=== PATIENT | male | born 1950 | race Caucasian/White ===

== ENCOUNTER → 2016-07-10 | Day surgery (SDC) | payer MEDICARE, BC ==
[~2016-07-10] MED LIST: Atracurium* 10 MG/ML 10 ML VIAL ONE; Buffered Lidocaine 1% SYR 3ML* 3 ML/SYR SYRINGE INTRADERM ONE; Buffered Lidocaine 1% SYR 3ML* 3 ML/SYR SYRINGE ONE; Bupivacaine 0.5% W/EPI SDV* 30 ML VIAL ONE; Clindamycin 900 MG IVPREMIX(* 900 MG/50 ML SDV IV ONE; DiMENhydriNATE IV* 50 MG/ML VIAL IV PUSH PRN; EPINEPHrine AMP 1 MG/ML ONE; HYDROcodone/ACETAMIN 5-325 MG* 1 TAB ONE; HYDROcodone/ACETAMIN 5-325 MG* 1 TAB PO PRN; HYDROmorphone INJ* 1 MG/ML CARPUJECT SYRINGE ONE; Ketorolac INJ* 30 MG/ML 1 ML VIAL IV PUSH PRN; Ketorolac INJ* 30 MG/ML 1 ML VIAL ONE; Lidocaine 2% MPF* 2 ML VIAL ONE; Ondansetron ODT TAB* 4 MG PO PRN; Phenylephrine IV* 40 MCG/ML 10 ML SYRINGE ONE; Propofol* 10 MG/ML 20 ML BTL IV PUSH ONE; fentaNYL* 50 MCG/ML 2 ML VIAL (100 MCG VIAL) ONE; fentaNYL* 50 MCG/ML 5 ML VIAL (250 MCG VIAL) ONE
[2016-07-10] MEDS: HYDROmorphone INJ* 1 MG/ML CARPUJECT SYRINGE IV PRN ×5 (12:52→14:06)
[2016-07-10] MEDS: fentaNYL* 50 MCG/ML 2 ML VIAL (100 MCG VIAL) IV PRN ×2 (12:54→13:07)
[2016-07-10 14:56] VITALS: BP 145/88
--- NOTE | 2016-07-12 03:16 | OP ---
DATE OF OPERATION: 07/10/16 - [facility] DATE OF : 52 SURGEON: Santos Howell MD TRIBAL JUDGE: MINOO Wheeler ANESTHESIOLOGIST: Rober Akhtar MD ANESTHESIA: General anesthesia. ANTIBIOSIS: Clindamycin 900 mg IV. PRE-OP DIAGNOSES: 1. Left shoulder rotator cuff tear, supraspinatus. 2. Left shoulder subacromial impingement. 3. Left shoulder AC joint arthritis. 4. Left shoulder possible proximal biceps tendonitis. 5. Left shoulder possible superior labral tear. POST-OP DIAGNOSES: 1. Left shoulder rotator cuff tear, supraspinatus. 2. Left shoulder subacromial impingement. 3. Left shoulder AC joint arthritis. 4. Left shoulder possible superior labral tear OPERATIVE PROCEDURES: 1. Left shoulder arthroscopic rotator cuff repair, supraspinatus, double row. 2. Left shoulder arthroscopic subacromial decompression. 3. Left shoulder arthroscopic distal clavicle resection. 4. Left shoulder arthroscopic release of biceps and debridement of superior labrum INDICATIONS: The patient is a 66-year-old man, retired, right-hand dominant, who presented to me with 3 months of lateral left shoulder pain. This pain had increased greatly when he threw a piece of wood and felt a sudden sharp stab in his lateral shoulder. This is affecting his sleep greatly. The patient himself was seen by his primary care physician first and diagnosed with bursitis , given a subacromial cortisone injection, and prescribed physical therapy. The patient's symptoms worsened and then he felt a snap in his shoulder with subsequent mild swelling and ecchymosis with actual some improvement of his symptoms. However, his pain continued to affect his activities of daily living and sleep. Of note, the patient has a history of a DVT 4 years prior to surgery treated with Coumadin for a limited time. The patient's preoperative exam demonstrated positive subacromial Neer and Foster impingement signs and pain with supraspinatus stress testing. There was a positive Speeds sign, positive tenderness to palpation at the biceps as well as tenderness to palpation at the AC joint. X-rays demonstrated much AC joint narrowing with the osteophyte off the inferior clavicle. MRI showed AC joint arthritis as well as a small lateral acromial spur impinging on the supraspinatus. There was noted a full width, full thickness around the supraspinatus with some minimal fat in the supraspinatus. There was also demonstrated a likely SLAP tear. The patient opted for surgical management. IV FLUIDS: See Anesthesia note. EBL: Minimal. SPECIMEN: None. IMPLANTS: 1. Mitek double-loaded Healix anchors x2. 2. Mitek knotless suture anchor x1. COMPLICATIONS: None. DESCRIPTION OF PROCEDURE: Preoperative written consent. Operative extremity was marked in preoperative holding. The patient declined an interscalene regional anesthetic block recommended by Anesthesia. The patient was taken back to the operating and placed supine on the operating room table. The patient was sedated and intubated. The patient was turned to the lateral decubitus position with the left shoulder up. All bony prominences were padded. An axillary roll was placed. A luciano bag was inflated. The left upper extremity was placed in 12 pounds of traction with 40 degrees of shoulder abduction and 15 degrees of forward flexion. The left shoulder was prepped and draped. Surgical time-out was performed. The posterior glenohumeral joint entered using a spinal 22 gauge needle. 25 cc of normal saline was infused into the joint. The glenohumeral joint was then entered through a standard posterior portal creation. Diagnostic arthroscopy was commenced. No clear articular cartilage lesions of either the glenoid or the humeral head. No calcification noted inferiorly that had been seen on x-ray. There was an superior labral tear visible. There was a clear large width supraspinatus tear present. The subscapularis looked frayed. An anterior glenohumeral joint portal was established under direct visualization. Some rotator interval tissue was debrided with the arthroscopic shaver. The arthroscopic shaver and the probe were used to evaluate the superior labrum. There was a clear superior labral tear. I probed it with the arthroscopic probe and shaver. The labrum clearly lifted off at least 5mm. There was much fraying in the tear and bare glenoid rim visible. The biceps itself did not show significant fraying. An arthroscopic scissors was introduced from anteriorly and the proximal biceps was cut. The labral tear was then debrided using the arthroscopic shaver. The subscapularis was evaluated again. There was fraying, but no clear bare area of rotator cuff footprint. No clear displaced tear. Instruments and fluid removed from the glenohumeral joint. The subacromial space was entered from posterior to anterior. A lateral subacromial portal was established. We had some technical difficulties at this point. A shaver was introduce,d but was not working. Later shaver was on, but would not turn off. Visibility was an issue as the patient's systolic blood pressure increased and was in the 140s for a period of time. I used a vapor to coagulate any possible bleeders, although it was just loose from everywhere. Eventually, the redness stopped and visibility improved. I visualized a retracted full width supraspinatus rotator cuff tear. The rotator cable was flipped up and back medially. I mobilized the tendon with a switching stick superior and inferior. I debrided the bleeding edge of the retracted cuff with an arthroscopic shaver. Before doing any additional cuff work, I then did my subacromial decompression. Using a priti, debrided proximally 4 mm of the anterior tip as well as lateral tip of the acromion. Nicely flattened out the undersurface of the acromion. Then, using a Scorpion, I placed a traction stitch in the supraspinatus. Using that as well as a cuff grasper, I identified the shape of the tear as crescent and found that it would clearly reduce to bone, specifically the footprint. I prepared the footprint by debriding it with an arthroscopic shaver including on forward mode. I briefly used the priti as well on that bone. I then created some superolateral stab holes and introduced double loaded Healix suture anchors just at the margin of articular cartilage and the medial footprint of the supraspinatus so as to not to put the healed cuff tendon on too much tension. I created additionally posterolateral and anterolateral portals to facilitate passage of the Expresso, specifically the knotless Expresso, and to improve my visualization. I passed the suture from the medial row suture anchors using the Expressew device. One suture in the anterior anchor failed, so I placed one horizontal mattress stitch with the anterior anchor and two nice mattress stitches from the posterior anchor. The anterior anchor stitch was not a sliding knot, but it came down nicely and the cuff nicely apposed the footprint along the length of the tear. To supplement this, I placed a knotless lateral row anchor x1 using suture from the medial row. I placed this through a superolateral portal using standard technique. I moved the humerus, confirmed the stability of the repair and took pictures of it. I then took a little bit of additional subacromial bursa with my shaver and a little bit of additional anterior hook of the acromion with a priti. I then took 8 mm of the bone off the distal end of the clavicle using the arthroscopic priti. All instruments and fluid were removed from the shoulder. The skin incisions were closed with [id number] stitches using nylon 4-0 suture, Xeroform, 4x4s, ABDs , foam tape. The patient was returned in supine position, awakened and extubated and transferred to the PACU. DISPOSITION: Postoperatively, my plan was to give the patient Lovenox for 1 week 40 mg subcu daily and follow that with 3 weeks of aspirin 325 mg p.o. b.i.d. This increased regiment of DVT prophylaxis is due to the patient's history of DVT. The patient has no known genetic predisposition to blood clots. The patient will also receive Keflex for 7 days and Percocet as needed for pain. He is in an UltraSling with a shoulder abduction pillow and will follow up with me in 10 to 14 days postoperatively. [id number]/[facility] #: [id number] MTDD
== END | disposition home or self-care (01) ==
LOC: OR 06:50
PROVIDERS: ATTEND Orthopaedic Surgery
DX: M75.102 Unspecified rotator cuff tear or rupture of left shoulder, not specified as traumatic (principal); M75.42 Impingement syndrome of left shoulder; M19.012 Primary osteoarthritis, left shoulder; M75.22 Bicipital tendinitis, left shoulder
CPT/HCPCS: J0171; J1170; J1885; J2704; J3010

== ENCOUNTER 2017-01-28 11:43 | Emergency (ER) | payer MEDICARE, BC ==
--- NOTE | 2017-01-28 12:53 | ED ---
Lower Extremity - HPI Summary HPI Summary: 66 male presents with complaints of a swollen, painful right lower leg that began ~1 week ago however really worsened over the past 2-3 days. Patient has a history of DVT in the same leg ~3years ago from trauma. Was taking coumadin at that time however is no longer taking any anticoagulants. Denies tobacco use, recent travel or bed rest. No trauma or injury. States it is worse when walking and bearing weight, better with rest. Described as dull ache. No other complaints or symptoms. Denies chest pain, SOB and nausea. Denies rash, redness , bruising and warmth to lower leg. PMHx significant for HTN which he takes lisinopril for. Has not taken any addtionaly medication for the pain besides his daily pain meds for chronic back pain. Denies numbness/tingling. - History of Current Complaint Chief Complaint: EDExtremityLower Stated Complaint: RT LEG SWELLING/POSSIBLE BLOOD CLOT Time Seen by Provider: 01/28/17 11:57 Hx Obtained From: Patient Mechanism Of Injury: Unknown - none Onset of Pain: Days Onset/Duration: Days Severity Initially: Mild Severity Currently: Moderate Pain Intensity: 3 Pain Scale Used: 0-10 Numeric Timing: Constant Location: Is Discrete @ - posterior right lower leg Character Of Pain: Dull, Aching Associated Signs And Symptoms: Positive: Swelling Aggravating Factor(s): Standing, Ambulation, Weight Bearing Alleviating Factor(s): Rest Able to Bear Weight: Yes - Risk Factors DVT Risk Factors: Prior DVT - Allergies/Home Medications Allergies/Adverse Reactions: Allergies Allergy/AdvReac Type Severity Reaction Status Date / Time Penicillins Allergy Severe Rash, HIVES Verified 07/03/16 13:52 Lisinopril Allergy Coughing Verified 07/03/16 13:52 PMH/Surg Hx/FS Hx/Imm Hx Endocrine/Hematology History: Denies: Hx Diabetes Cardiovascular History: Reports: Hx Hypertension - CONTROL WITH MEDS Denies: Hx Pacemaker/ICD History: Denies: Hx Renal Disease Musculoskeletal History: Reports: Hx Arthritis - BACK, Hx Bursitis - LEFT SHOULDER, Hx Tendonitis, Other Musculoskeletal History - TORN ROTATO CUFF Sensory History: Reports: Hx Contacts or Glasses - GLASSES, 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 2011 LIPOMA RIGHT ARM REMOVED, [facility] Hx Anesthesia Reactions: No - Immunization History Immunizations Up to Date: Yes Infectious Disease History: No Infectious Disease History: Denies: Traveled Outside the [place] in Last 30 Days - Family History Known Family History: Positive: None - Social History Alcohol Use: Rare Substance Use Type: Reports: None Smoking Status (MU): Never Smoked Tobacco Review of Systems Constitutional: Negative Cardiovascular: Negative Respiratory: Negative Gastrointestinal: Negative Positive: Myalgia, Edema Skin: Negative Neurological: Negative All Other Systems Reviewed And Are Negative: Yes Physical Exam Triage Information Reviewed: Yes Vital Signs On Initial Exam: Initial Vitals Temp Pulse Resp BP Pulse Ox 97.8 F 80 16 154/94 99 01/28/17 11:47 01/28/17 11:47 01/28/17 11:47 01/28/17 11:47 01/28/17 11:47 Vital Signs Reviewed: Yes Appearance: Positive: Well-Appearing, No Pain Distress, Well-Nourished Skin: Positive: Warm, Skin Color Reflects Adequate Perfusion, Dry. Negative: Numb, Tender, Cyanosis @, Pale, Erythema @ Head/Face: Positive: Normal Head/Face Inspection Eyes: Positive: Normal, Conjunctiva Clear ENT: Positive: Hearing grossly normal Neck: Positive: Supple, Nontender Respiratory/Lung Sounds: Positive: Clear to Auscultation, Breath Sounds Present. Negative: Rales, Rhonchi, Wheezes Cardiovascular: Positive: Normal, RRR, Pulses are Symmetrical in both Upper and Lower Extremities - 2+ pedal equal b/l. Negative: Murmur, Rub Bowel Sounds: Positive: Present Musculoskeletal: Positive: Normal, Strength/ROM Intact, Pain @ - posterior right lower leg behind knee and into calf with palpation, mild, Edema Right - 39.5cm around calf circumference and 35.5cm on left, Other - no obvious signs of trauma. Negative: Lauryn Sign Left, Lauryn Sign Right Neurological: Positive: Normal, Sensory/Motor Intact, Alert, Oriented to Person Place, Time, Reflexes Intact Diagnostics - Vital Signs Vital Signs Temp Pulse Resp BP Pulse Ox 01/28/17 11:47 97.8 F 80 16 154/94 99 - Laboratory Result Diagrams: 01/28/17 14:14 01/28/17 14:14 Lab Statement: Any lab studies that have been ordered have been reviewed, and results considered in the medical decision making process. - Ultrasound No standard instances Ultrasound Interpretation: Positive (See Comments) - There is occlusive thrombus from the level of the right femoral vein inferiorly through to the calf veins. The remainder of the venous system of the right lower extremity is compressible throughout its course, with normal flow on color Doppler imaging and normal response to augmentation on spectral Doppler imaging. Ultrasound Interpretation Completed By: Radiologist Lower Extremity Course/Dx - Course Course Of Treatment: U/S obtained and positive for an occlusive thrombosis in right femoral vein. Due to PE findings, vital signs and HPI no further testing was required. CBC CMP ordered to check kidney function. spoke with patient and educated on treatment for DVT. decided that outpatient xarelto was drug of choice. aware of all side effects, contraindications and risks of anticoagulant medication. aware of worsening signs and symptoms of DVT. close follow up with PCP. understands appropraite treatment regimen, meds to stay away from and things to look out for while taking medication. agrees with plan. given first dose while in ED. patient is responsible and compliant with medications. no concern for outpatient treatment at this time. - Diagnoses Differential Diagnosis/HQI/PQRI: Positive: Contusion, DVT, Gout, Infection, Sprain, Strain Provider Diagnoses: Deep vein thrombosis (DVT) of right lower extremity - Physician Notifications Discussed Care Of Patient With: Dr Fox Discharge - Discharge Plan Condition: Stable Disposition: HOME Prescriptions: Rivaroxaban TAB(*) [Xarelto 15 mg(*)] 15 mg PO BID #42 tab Patient Education Materials: Rivaroxaban (By mouth), Deep Venous Thrombosis (ED ) Referrals: Satish Avelar MD [Primary Care Provider] - Additional Instructions: Take medication as directed, twice daily with food. Do not take medications containing aspirin, ibuprofen or naproxen. No NSAIDs as they can increase your risk of bleeding. Tylenol/acetaminophen is safe. This does thin your blood as we discussed and there is a risk of bleeding. If you have any trauma, cut, bloody nose etc please seek medical attention promptly to ensure bleeding subsides- apply pressure. Length of treatment is approximately 3 months however may be longer depending. Follow up with primary care appointment as you will need a new dose of medication after the first 21 days and follow up on DVT. If you develop worsening signs and symptoms such as difficulty breathing, SOB, chest pain etc please seek medical attention immediately.
--- NOTE | 2017-01-28 13:25 | RAD ---
HISTORY: Right leg pain COMPARISONS: None relevant TECHNIQUE: Multiple transverse and longitudinal ultrasound images were obtained of the right lower extremity from the level of the common femoral vein inferiorly through to the infrapopliteal veins using grayscale, color Doppler, and spectral Doppler imaging with and without compression and with augmentation. Comparison images were obtained of the contralateral common femoral vein. FINDINGS: VEINS: There is occlusive thrombus from the level of the right femoral vein inferiorly through to the calf veins. The remainder of the venous system of the right lower extremity is compressible throughout its course, with normal flow on color Doppler imaging and normal response to augmentation on spectral Doppler imaging. SOFT TISSUES: Unremarkable. OTHER FINDINGS: None. IMPRESSION: OCCLUSIVE THROMBUS OF THE RIGHT FEMORAL VEIN INFERIORLY TO THE CALF VEINS
[2017-01-28 14:25] LABS: Hematocrit 43 % (42-52); Hemoglobin 14.8 g/dl (14.0-18.0); Mean Corpuscular HGB Conc 34 g/dl (31-36); Mean Corpuscular Hemoglobin 31 pg (27-31); Mean Corpuscular Volume 90 fL (80-94); Mean Platelet Volume 9 um3 (7.4-10.4); Red Blood Count 4.83 10^6/ul (4.0-5.4); Red Cell Distribution Width 14 % (10.5-15)
[2017-01-28 14:41] LABS: Albumin 4.1 g/dL (3.2-5.2); BUN/Creatinine Ratio 18.5 (8-20); Calcium 10.4 mg/dL (8.6-10.3); EGFR African American 106.2 (>60); EGFR Non-African American 82.6 (>60); Globulin 3.2 g/dL (2-4); Potassium 4.1 mmol/L (3.5-5.0); Total Bilirubin 0.6 mg/dL (0.2-1.0); Total Protein 7.3 g/dL (6.4-8.9)
[2017-01-28] MEDS ORDERED: Rivaroxaban TAB(*) 15 MG PO ONE (14:56)
[2017-01-28 15:29] VITALS: BP 153/79
== END 2017-01-28 15:28 | disposition home or self-care (01) ==
LOC: ED 11:43
DX: I82.401 Acute embolism and thrombosis of unspecified deep veins of right lower extremity (principal)
CPT/HCPCS: 36415; 80053; 85025; 99282

== ENCOUNTER 2019-07-24 07:19 | Emergency (ER) | payer MEDICARE, BC ==
--- OUTSIDE RECORDS SUMMARY | 2019-07-24 07:25 | XMS REPORT | Continuity of Care Document ---
:1950 External Reference #:[id number] Author Name Isabela Bettencourt M.D. (transmitted by agent of provider Kalia Tanner) Address [address] [place] [address] [place] [address] Care Team Providers Name Role Phone Satish Avelar MD - Internal Care Team Information Quality Control Coordinator Medicine Problems Description No Information Available Social History Type Date Description Comments Sex Unknown ETOH Use Denies alcohol use Tobacco Use Start: Unknown Patient has never smoked Smoking Status Reviewed: 07/10/19 Patient has never smoked Exercise Type/Frequency Exercises regularly Allergies, Adverse Reactions, Alerts Active Allergies Reaction Severity Comments Date Penicillin 06/16/2016 Medications Active Medications SIG Qnty Indications Ordering Provider Date Bupropion HCL ER (SR) 1 by mouth twice Unknown a day 150mg Tablets ER 12HR Losartan Potassium 1 by mouth every Unknown 25mg day Tablets Naproxen 1 tablet with Unknown 500mg Tablets food by mouth twice a day Zolpidem Tartrate 1 tab at bedtime Unknown 5mg as needed for Tablets sleep Atorvastatin Calcium 1 by mouth every Unknown 40mg day Tablets Immunizations Description No Information Available Vital Signs Date Vital Result Comment 07/10/2019 10:03am Height 70 inches 5'10" Weight 198.00 lb Heart Rate 64 /min BP Systolic 134 mmHg BP Diastolic 88 mmHg Respiratory Rate 16 /min Body Temperature 98.3 F BMI (Body Mass Index) 28.4 kg/m2 09/28/2016 8:01am Height 70 inches 5'10" Weight 195.00 lb Heart Rate 72 /min BP Systolic 142 mmHg BP Diastolic 87 mmHg Respiratory Rate 16 /min Body Temperature 98.1 F Pain Level 1 BMI (Body Mass Index) 28.0 kg/m2 Results Description No Information Available Procedures Description No Information Available Medical Devices Description No Information Available Encounters Description No Information Available Assessments Date Code Description Provider 07/10/2019 M67.432 Ganglion, left wrist Isabela Bettencourt M.D. Plan of Treatment 07/10/2019 - Isabela Bettencourt M.D.M67.432 Ganglion, left wristFollow up:Follow up: As needed Functional Status Description No Information Available Mental Status Description No Information Available Referrals Description No Information Available
--- NOTE | 2019-07-24 07:31 | UC ---
Lower Extremity/Ankle HPI - HPI Summary HPI Summary: Patient presents to urgent care for evaluation of pain and swelling in his left lower leg, discomfort progressive since Wednesday. Patient denies any trauma. Denies any recent travel. No recent surgeries. Patient does have neuropathy of his feet bilaterally at baseline. Patient states related to this he has some temperature sensitivity in his feet. 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 First was treated with Coumadin. Second DVT was treated with Xarelto in 2017. Patient is not currently on any anticoagulant. Patient does not smoke. Patient does not take any hormone replacement. Patient has not traveled or been on bed rest or recent surgery. Patient does not know family history of DVT/hypercoag disorder. Patient denies any chest pain or shortness of breath. No abdominal pain. No nausea or vomiting. Patient's medications present in the EMR by triage was reviewed this visit. - History of Current Complaint Stated Complaint: LEFT LEG PAIN Hx Obtained From: Patient Onset/Duration: Gradual Onset Severity Initially: Mild Severity Currently: Mild Pain Scale Used: 0-10 Numeric - Allergies/Home Medications Allergies/Adverse Reactions: Allergies Allergy/AdvReac Type Severity Reaction Status Date / Time lisinopril Allergy Coughing Verified 07/24/19 07:35 Penicillins Allergy rash and Verified 07/24/19 07:35 hives Home Medications: Home Medications Gabapentin [Neurontin] 1 cap PO BEDTIME 07/24/19 [History Confirmed 07/24/19] PMH/Surg Hx/FS Hx/Imm Hx - Additional Past Medical History Additional PMH: RLE DVT x 2 Previously Healthy: Yes Endocrine History: Diabetes - borderline, Dyslipidemia Cardiovascular History: Hypertension - Surgical History Surgical History: Yes Surgery Procedure, Year, and Place: 1991 RIGHT AND LEFT STAPEDECTOMY, [employer]- [facility]. 2001 LEFT HERNIA REPAIR, [employer]. 2003 RIGHT HERNIA REPAIR, [employer]. 2006 BACK SURGERY, [employer]. 2011 LIPOMA RIGHT ARM REMOVED, [facility] [place] - Family History Known Family History: Positive: Non-Contributory - Social History Occupation: Retired Lives: With Family Alcohol Use: Rare Substance Use Type: None Smoking Status (MU): Never Smoked Tobacco Review of Systems All Other Systems Reviewed And Are Negative: Yes Constitutional: Positive: Negative Skin: Positive: Negative Musculoskeletal: Positive: Other: - left LE pain, swelling Physical Exam - Summary Physical Exam Summary: Vital Signs Reviewed: Yes A+Ox3, no distress Eyes: Conjunctiva Clear ENT: Hearing grossly normal neck: supple Respiratory: Positive: No respiratory distress, No accessory muscle use, CTA throughout, no w/r Cardiovascular: skin color reflect adequate perfusion 2+ DP, PT + 1+ edema LLE - pt wearing compression sleeve Musculoskeletal Exam: + SLE + flex/ext knee with discomfort left calf, + left flex/ext ankle + TTP left posterior calf Neurological: Positive: Alert, ambulatory without difficulty Psychological: Positive: Normal Response To examiner Skin: Positive: no rash, no ecchymosis, no erythema, mild edema left calf Triage Information Reviewed: Yes Diagnostics - Radiology No standard instances Radiology Interpretation Completed By: Radiologist - Patient Name: DERIAN AMADOR Medical Record#: [id number] Ordering Physician: Gris Barnes MD Acct.#: [id number] : 1950 Age: 69 Sex: M Location: [facility] Exam Date: 07/24/19 075 ADM Status: REG ER Order Information: VL LOWER EXT VEINS LEFT Accession Number: [id number] CPT: 06106 HISTORY: LLE edema, pain s/o DVT COMPARISONS: None relevant TECHNIQUE: Multiple transverse and longitudinal ultrasound images were obtained of the left lower extremity from the level of the common femoral vein inferiorly through to the infrapopliteal veins using grayscale, color Doppler, and spectral Doppler imaging with and without compression and with augmentation. Comparison images were obtained of the contralateral common femoral vein. FINDINGS: VEINS: There is partially occlusive thrombus noted within the femoral vein, with occlusive thrombus of the popliteal vein extending inferiorly into the calf veins. SOFT TISSUES: Unremarkable. OTHER FINDINGS: None. IMPRESSION: LEFT LOWER EXTREMITY DEEP VEIN THROMBOSIS EXTENDING FROM THE FEMORAL VEIN TO THE CALF. <Electronically signed by Guy Thorpe MD in [place]> 07/24/19842 Dictated By: Guy Thorpe MD Dictated Date/Time: 07/24/19841 Transcribed Date/Time: 07/24/19841 Copy to: CC:Gris Barnes MD; Satish Avelar MD Imaging - [facility] Imaging - [facility] Imaging - [facility] [id number] [place] [address] [place] [id number] ph ([phone]) ph ([phone]) ph ([phone]) This report is only to be considered final once signed by the Provider(s) as displayed in the "<Electronically Signed by >" field (s). Absence of a signature indicates the report is in a draft status and still needs to be finalized. In the event this document was created by someone other than the signing Provider, the individual initiating the document will be listed in the "Entered by:" or "Dictated by:" adame. Re-Evaluation - Re-Evaluation First Eval Comment: Patient does have a left lower extremity DVT. Patient distal CSM is intact. I spoke with Dr. Avelar patient's PCP. Start patient on Xarelto, 15mg twice a day. He will have his staff call patient today to schedule follow-up with him this week. Discussed with Dr. Avelar about having blood work drawn today here for hypercoagulable panel. He indicated to hold today and he will return to his office. I did update patient and he is comfortable with this plan. Patient declined offer for crutch or walker. Strict return precautions discussed with patient. Patient advised not to take NSAIDs or aspirin while on Xarelto States understanding and will use Tylenol for pain. Pt comfortable and in agreement with plan. Lower Extremity Course/Dx - Course Course Of Treatment: Patient presents to urgent care for evaluation of left lower extremity pain. Patient's concerned he's has a DVT. Patient's had progressive pain since Wednesday. Patient to the right leg in the past. Patient is currently not anticoagulated. Patient does not have any identified risk factors including travel, surgery, smoking, family history. Patient does not know if he had a hypercoagulable workup. On exam vital signs are stable. Patient does have some edema in his left lower extremity as well as discomfort along the calf into the popliteal fossa. Patient with good distal CSM. We'll check the ultrasound. Patient also accepting Tylenol for pain. Pt's BP elevated - history of same - Differential Dx/Diagnosis Provider Diagnosis: Deep vein thrombosis (DVT) of left lower extremity Discharge ED - Sign-Out/Discharge Documenting (check all that apply): Patient Departure All imaging exams completed and their final reports reviewed: Yes - Discharge Plan Condition: Stable Disposition: HOME Prescriptions: Rivaroxaban TAB(*) [Xarelto 15 mg(*)] 15 mg PO DAILY #42 tab Patient Education Materials: Deep Vein Thrombosis (ED) Referrals: Satish Avelar MD [Primary Care Provider] - (You should be seen this week - his office will call you to schedule an appointment. ) Additional Instructions: - Take Xarelto 2 times a day as prescribed - Okay to take Tylenol every 6-8 hours for pain - Avoid taking ibuprofen, Advil, Motrin, naproxyn, aspirin while taking this medication - Dr. Avelar's office will be contacting you to schedule a follow-up appointment. If you do not hear from the office by tomorrow - please call to schedule an appointment - If you develop chest pain, shortness of breath, lightheadedness or ANY Other concern contact 911 and go immediately to the emergency department for further evaluation and treatment - Billing Disposition and Condition Condition: STABLE Disposition: Home
[2019-07-24 07:35] VITALS: BP 148/85
[2019-07-24] MEDS ORDERED: Acetaminophen TAB* 325 MG PO ONE (07:51)
== END 2019-07-24 09:07 | disposition home or self-care (01) ==
LOC: UCEAST 07:19
DX: I82.412 Acute embolism and thrombosis of left femoral vein (principal); I82.4Z2 Acute embolism and thrombosis of unspecified deep veins of left distal lower extremity; E11.9 Type 2 diabetes mellitus without complications; I10 Essential (primary) hypertension; Z88.0 Allergy status to penicillin; Z88.8 Allergy status to other drugs, medicaments and biological substances; Z86.718 Personal history of other venous thrombosis and embolism
CPT/HCPCS: 99212; A9270-GY; G0463